=== PATIENT | male | born 1995 | race Caucasian/White ===

== ENCOUNTER 2017-06-17 16:13 | Emergency (ER) | payer OTHER ==
[~2017-06-17] VITALS: Ht 172.7 cm; Wt 80.7 kg
[2017-06-17] MEDS ORDERED: CITA20TA11 PO (16:24)
[2017-06-17 16:43] VITALS: BP 141/89
== END 2017-06-17 16:44 | disposition home or self-care (01) ==
LOC: ER 16:14
DX: Z00.00 Encounter for general adult medical examination without abnormal findings (principal); V53.5XXA Driver of pick-up truck or van injured in collision with car, pick-up truck or van in traffic accident, initial encounter; Y93.89 Activity, other specified; Y92.481 Parking lot as the place of occurrence of the external cause; Y99.8 Other external cause status
CPT/HCPCS: A4663